=== PATIENT | male | born 1965 | race Caucasian/White ===

== ENCOUNTER 2017-06-22 16:10 | Emergency (ER) | payer OTHER ==
--- NOTE | 2017-06-22 16:28 | PDOC ---
History of Present Illness - General History Source: Patient Exam Limitations: No Limitations - History of Present Illness Initial Comments: 06/22/17 16:32 The patient is a 51 year old male with a significant past medical history of CVA (03/2017), ?Afib, psoriatic arthritis and psoriasis who presents to the ED with headache and multiple abrasions s/p mechanical fall today. Patient was walking towards his car to get his bike as he tripped and fell landing on his knees then face. Patient was found conscious by his on the ground. He is now complaining of a headache. The patient denies fever, chills, n/v/d, abd pain, urinary symptoms, recent injuries or any other symptoms. PCP - Dr. Juan David Thurston [facility] - Knee sx, tonsillectomy, hernia, heart monitor placement. <Sarah Beth Hughes - Last Filed: 06/22/17 17:21> - General History Source: Patient, Old Records Exam Limitations: No Limitations <Mia Forman - Last Filed: 06/22/17 18:55> - General Chief Complaint: Injury Stated Complaint: FELL, STRUCK HIS FACE & HANDS Time Seen by Provider: 06/22/17 16:25 Past History <Sarah Beth Hughes - Last Filed: 06/22/17 17:21> - Past Medical History Psychiatric Problems: Yes (ANXIETY) - Surgical History Abdominal Surgery: Yes (HERNIA REPAIR) - Psycho/Social/Smoking Cessation Hx Anxiety: Yes Suicidal Ideation: No Smoking History: Current some day smoker Have you smoked in the past 12 months: Yes Number of Cigarettes Smoked Daily: 1 'Breaking Loose' booklet given: 07/15/15 Hx Alcohol Use: No Drug/Substance Use Hx: No Substance Use Type: None <Mia Forman - Last Filed: 06/22/17 18:55> - Past Medical History Allergies/Adverse Reactions: Allergies Allergy/AdvReac Type Severity Reaction Status Date / Time No Known Allergies Allergy Verified 07/15/15 05:05 Home Medications: Ambulatory Orders Alprazolam 1 mg PO BID 06/22/17 Aspirin Coated [Ecotrin -] 81 mg PO DAILY 06/22/17 Atorvastatin Ca [Lipitor] 40 mg PO HS 06/22/17 Biotin 10,000 mcg PO DAILY 06/22/17 Calcium Carbonate [Calcium] 1,000 mg PO DAILY 06/22/17 Cholecalciferol (Vitamin D3) [Vitamin D3] 5,000 unit PO DAILY 06/22/17 Escitalopram Oxalate [Lexapro -] 20 mg PO DAILY 06/22/17 Folic Acid - 1 mg PO BID 06/22/17 Gabapentin [Neurontin] 300 mg PO BID 06/22/17 Hydrochlorothiazide 25 mg PO DAILY 06/22/17 Lisinopril [Prinivil] 20 mg PO DAILY 06/22/17 Omeprazole 40 mg PO DAILY 06/22/17 Oxycodone HCl/Acetaminophen [Percocet 10-325 mg Tablet] 1 each PO TID 06/22/17 Prednisone [Deltasone] 40 mg PO DAILY 06/22/17 Secukinumab [Cosentyx Syringe] 150 mg SQ MONTHLY 06/22/17 Review of Systems - Review of Systems Able to Perform ROS?: Yes Comments:: 06/22/17 16:32 CONSTITUTIONAL: Absent: fever, chills, diaphoresis, generalized weakness, malaise, loss of appetite HEENT: Absent: rhinorrhea, nasal congestion, throat pain, throat swelling, difficulty swallowing, mouth swelling, ear pain, eye pain, visual Changes CARDIOVASCULAR: Absent: chest pain, syncope, palpitations, irregular heart rate, lightheadedness , peripheral edema RESPIRATORY: Absent: cough, shortness of breath, dyspnea with exertion, orthopnea, wheezing, stridor, hemoptysis GASTROINTESTINAL: Absent: abdominal pain, abdominal distension, nausea, vomiting, diarrhea, constipation, melena, hematochezia GENITOURINARY: Absent: dysuria, frequency, urgency, hesitancy, hematuria, flank pain, genital pain MUSCULOSKELETAL: Absent: myalgia, arthralgia, joint swelling SKIN: Present: multiple abrasions Absent: rash, itching, pallor HEMATOLOGIC/IMMUNOLOGIC: Absent: easy bleeding, easy bruising, lymphadenopathy, frequent infections ENDOCRINE: Absent: unexplained weight gain, unexplained weight loss, heat intolerance, cold intolerance NEUROLOGIC: Present: headache Absent: focal weakness or paresthesias, dizziness, unsteady gait, seizure, mental status changes, bladder or bowel incontinence PSYCHIATRIC: Absent: anxiety, depression, suicidal or homicidal ideation, hallucinations. <Sarah Beth Hughes - Last Filed: 06/22/17 17:21> *Physical Exam - Physical Exam Comments: 06/22/17 16:34 GENERAL: Well developed, well nourished. Awake and alert. In no acute distress. HEENT: Normocephalic, atraumatic. PERRLA, EOMI. No conjunctival pallor. Sclera are non- icteric. Moist mucous membranes. Oropharynx is clear. No hemotempinad. NECK: Supple. Full ROM. No JVD. Carotid pulses 2+ and symmetric, without bruits. No thyromegaly. No lymphadenopathy. CARDIOVASCULAR: Regular rate and rhythm. No murmurs, rubs, or gallops. Distal pulses are 2+ and symmetric. PULMONARY: No evidence of respiratory distress. Lungs clear to auscultation bilaterally. No wheezing, rales or rhonchi. ABDOMINAL: Soft. Non-tender. Non-distended. No rebound or guarding. No organomegaly. Normoactive bowel sounds. MUSCULOSKELETAL No C spine tenderness, no paraspinal tenderness, no step off or crepitus or bony deformity. Normal range of motion at all joints. No bony deformities or tenderness. No CVA tenderness. EXTREMITIES: No cyanosis. No clubbing. No edema. No calf tenderness. SKIN: (+)Ecchymosis at the right 5th metacarpal region, satellite laceration to right side of the forehead, abrasions to episcopalian region and bilateral upper extremities. Warm and dry. Normal capillary refill. No rashes. No jaundice. NEUROLOGICAL: Alert, awake, appropriate. Cranial nerves 2-12 intact. No focal deficit. PSYCHIATRIC: Cooperative. Good eye contact. Appropriate mood and affect. <Sarah Beth Hughes - Last Filed: 06/22/17 17:21> Procedures - Laceration/Wound Repair Face Wound Length: to 2.5 cm Wound Explored: clean Wound's Depth, Shape: superficial Irrigated w/ Saline: No Betadine Prep: Yes Anesthesia: 1% Lidocaine Amount of Anesthetic (ccs): 3 Wound Debrided: minimal Wound Repaired With: Sutures Suture Size/Type: 5:0 Number of Sutures: 5 Layer Closure: No Sterile Dressing Applied: No Progress: 06/22/17 17:15 Bacitracin dressing applied. Patient tolerated procedure well. <Mia Forman - Last Filed: 06/22/17 18:55> Medical Decision Making - Medical Decision Making 06/22/17 16:26 42-year-old male with history of psoriatic arthritis, questionable atrial fibrillation, CVA in March 2017 presents the emergency Department with complaints of headache status post mechanical fall while walking today with positive LOC; he sustained a laceration to his forehead. Differential diagnosis includes but is not limited to: TBI, concussion, laceration to forehead, contusion, various abrasions. Plan: 1. CT head 2. Suture repair of wound 3. Pain management 4. Observe and reevaluate 06/22/17 18:04 Addendum: CT hea is negative. The patient c/o pain to his right wrist and hand. Plain films were obtained and are negative (per my read). Will discharge home. Suture removal and wound care discussed with the patient. Patient was advised to return to the ED if his Sx persist, worsen, or new Sx arise. 06/22/17 18:54 Addendum: The patient was discharged home and instructed to call back for official radiology read in the am. The radiologist called me to say the there is no fracture but the carpal bones appear malaligned and recommended CT scan of the wrist. I called Mr. Boggs at home and informed him of the read as well as the need to come back for further imaging. The patient states that he will return in the morning for re-evaluation. <Mia Forman - Last Filed: 06/22/17 18:55> *DC/Admit/Observation/Transfer - Attestations Scribe Attestion: 06/22/17 16:38 Documentation prepared by CRISTY Gutierrez, acting as medical imaging specialist for Mia Forman MD. <Sarah Beth Hughes - Last Filed: 06/22/17 17:21> - Discharge Dispostion Admit: No - Attestations Physician Attestion: 06/22/17 16:27 I, Dr. Mia Forman, attest that the scribes documentation that appears above has been prepared under my direction and personally reviewed by me in its entirety. I confirmed that the note above accurately reflects all work, treatment, procedures, and medical decision-making performed by me. <Mia Forman - Last Filed: 06/22/17 18:55> Diagnosis at time of Disposition: Forehead laceration, Abrasion, Concussion, Fall, Contusion of hand, right - Discharge Dispostion Disposition: HOME Condition at time of disposition: Stable - Referrals Referrals: Juan David Thurston MD [Primary Care Provider] - - Patient Instructions Printed Discharge Instructions: Tips to Help You Stop Smoking, DI for Suture Removal, DI for Closed Head Injury Additional Instructions: You may take tylenol or ibuprofen for pain. Sutures should be removed in 5-7 days. Return to the ED sooner if you see redness, swelling, purulent discharge or any other signs of infection.
[2017-06-22 16:56] VITALS: BP 155/102; PULSE 112; TEMP 98.2; BMI 25.0
== END 2017-06-22 18:09 | disposition home or self-care (01) ==
LOC: FER 16:10
PROC: 0HQ1XZZ Repair Face Skin, External Approach (ICD-10-PCS; principal; 2017-06-22)
DX: S01.81XA Laceration without foreign body of other part of head, initial encounter (principal); S60.051A Contusion of right little finger without damage to nail, initial encounter; S06.0X0A Concussion without loss of consciousness, initial encounter; F17.210 Nicotine dependence, cigarettes, uncomplicated; F41.9 Anxiety disorder, unspecified; W18.39XA Other fall on same level, initial encounter; Y93.01 Activity, walking, marching and hiking; Y92.9 Unspecified place or not applicable; Z86.73 Personal history of transient ischemic attack (TIA), and cerebral infarction without residual deficits; L40.9 Psoriasis, unspecified
CPT/HCPCS: 70450-TC; 73110-TC-RT; 73130-TC-RT; 99281-25

== ENCOUNTER 2017-06-23 10:49 | Emergency (ER) | payer OTHER ==
[2017-06-23 11:09] VITALS: BP 151/95; PULSE 94; TEMP 98.1; BMI 27.1
--- NOTE | 2017-06-23 11:30 | PDOC ---
History of Present Illness - General Chief Complaint: Injury Stated Complaint: rt wrist injury Time Seen by Provider: 06/23/17 10:55 History Source: Patient, Old Records Exam Limitations: No Limitations - History of Present Illness Initial Comments: 06/23/17 11:31 The patient is a 51 year old male with a significant past medical history of CVA (03/2017), ?Afib, psoriatic arthritis and psoriasis who presented to the ED yesterday with headache and multiple abrasions s/p mechanical fall yesterday. Patient was walking towards his car to get his bike as he tripped and fell landing on his knees then face. Patient was found conscious by his on the ground. He sustained a laceration to the forehead which was sutured. The patient had a work-up which included a CT head as well as right hand and wrist plain films. The CT head was negative; the plain films of the right hand/wrist showed ? malalignment of the carpal bones and CT scan was recommended. The patient returns to the ED today for that CT scan for further evaluation. He does c/o pain to the right wrist. Past History - Past Medical History Allergies/Adverse Reactions: Allergies Allergy/AdvReac Type Severity Reaction Status Date / Time No Known Allergies Allergy Verified 06/23/17 10:50 Home Medications: Ambulatory Orders Alprazolam 1 mg PO BID 06/22/17 Aspirin Coated [Ecotrin -] 81 mg PO DAILY 06/22/17 Atorvastatin Ca [Lipitor] 40 mg PO HS 06/22/17 Biotin 10,000 mcg PO DAILY 06/22/17 Calcium Carbonate [Calcium] 1,000 mg PO DAILY 06/22/17 Cholecalciferol (Vitamin D3) [Vitamin D3] 5,000 unit PO DAILY 06/22/17 Escitalopram Oxalate [Lexapro -] 20 mg PO DAILY 06/22/17 Folic Acid - 1 mg PO BID 06/22/17 Gabapentin [Neurontin] 300 mg PO BID 06/22/17 Hydrochlorothiazide 25 mg PO DAILY 06/22/17 Lisinopril [Prinivil] 20 mg PO DAILY 06/22/17 Omeprazole 40 mg PO DAILY 06/22/17 Oxycodone HCl/Acetaminophen [Percocet 10-325 mg Tablet] 1 each PO TID 06/22/17 Prednisone [Deltasone] 40 mg PO DAILY 06/22/17 Secukinumab [Cosentyx Syringe] 150 mg SQ MONTHLY 06/22/17 Psychiatric Problems: Yes (ANXIETY) - Surgical History Abdominal Surgery: Yes (HERNIA REPAIR) - Psycho/Social/Smoking Cessation Hx Anxiety: Yes Suicidal Ideation: No Smoking History: Current some day smoker Have you smoked in the past 12 months: Yes Number of Cigarettes Smoked Daily: 1 Information on smoking cessation initiated: Yes 'Breaking Loose' booklet given: 06/23/17 Hx Alcohol Use: No Drug/Substance Use Hx: No Substance Use Type: None Review of Systems - Review of Systems Able to Perform ROS?: Yes Is the patient limited Latvian proficient: No Constitutional: No: Symptoms Reported HEENTM: No: Symptoms Reported Respiratory: No: Symptoms reported Cardiac (ROS): No: Symptoms Reported ABD/GI: No: Symptoms Reported : No: Symptoms Reported Musculoskeletal: Yes: See HPI Integumentary: No: Symptoms Reported *Physical Exam - Vital Signs Last Vital Signs Temp Pulse Resp BP Pulse Ox 98.1 F 94 H 20 151/95 94 L 06/23/17 10:50 06/23/17 10:50 06/23/17 10:50 06/23/17 10:50 06/23/17 10:50 - Physical Exam Comments: 06/23/17 11:34 GENERAL: Well developed, well nourished. Awake and alert. No acute distress. HEENT: There is brusing and ecchymosis to the rightr side of the face with right hetal- orbital edema. The sutures are intact. PERRLA, EOMI. No conjunctival pallor. Sclera are non-icteric. Moist mucous membranes. Oropharynx is clear. NECK: Supple. Full ROM. No JVD. No lymphadenopathy. CARDIOVASCULAR: Regular rate and rhythm. No murmurs, rubs, or gallops. Distal pulses are 2+ and symmetric. PULMONARY: No evidence of respiratory distress. Lungs clear to auscultation bilaterally. No wheezing, rales or rhonchi. ABDOMINAL: Soft. Non-tender. Non-distended. No rebound or guarding. No organomegaly. Normoactive bowel sounds. EXTREMITIES: Right wrist: There is swelling of the right wrist with limited ROM. SKIN: Warm and dry. Normal capillary refill. No rashes. No jaundice. NEUROLOGICAL: Alert, awake, appropriate. Cranial nerves 2-12 intact. Grossly non-focal exam. PSYCHIATRIC: Cooperative. Good eye contact. Appropriate mood and affect. ED Treatment Course - RADIOLOGY Radiology Studies Ordered: Category Date Time Status UPPER EXTREMITY CT W/O CONTR [CT] Stat CT Scan 06/23/17 10:58 Ordered Medical Decision Making - Medical Decision Making 06/23/17 11:35 51-year-old male status post mechanical fall yesterday with abnormal plain films of the right hand here for reevaluation with CT scan. Differential diagnosis includes but is not limited to: Dislocation/subluxation of the carpal bones, fracture, contusion, sprain. Plan: 1. CT scan 2. Pain management 3. Observe and reevaluate 06/23/17 12:20 Addendum: CT scan has been obtained and shows a non-displaced fx of the radial head (probably acute) and a ?lunate "tilt". The right has been placed in a volar splint. I have discussed the results of the CT scan findings and have advised him to follow up with an orthopedist within the next few days-- preferably tomorrow. The patient has an orthopedist that he can go to see/ prefers. A copy of the CT read as well as the images has been provided to the patient. *DC/Admit/Observation/Transfer Diagnosis at time of Disposition: Fracture of right wrist - Discharge Dispostion Disposition: HOME Condition at time of disposition: Stable Admit: No - Patient Instructions Additional Instructions: You have been placed in a wrist splint for a non-displaced radial head fracture. Keep the extremity elevated at all times when/if possible. Please follow-up with an orthopedist tomorrow and return to the ED if your symptoms persist, worsen or new symptoms arise.
== END 2017-06-23 12:45 | disposition home or self-care (01) ==
LOC: FER 10:49
PROC: 2W3CX1Z Immobilization of Right Lower Arm using Splint (ICD-10-PCS; principal; 2017-06-23)
DX: S52.591A Other fractures of lower end of right radius, initial encounter for closed fracture (principal); W18.39XA Other fall on same level, initial encounter; Y93.89 Activity, other specified; Y92.9 Unspecified place or not applicable; F41.9 Anxiety disorder, unspecified; F17.210 Nicotine dependence, cigarettes, uncomplicated
CPT/HCPCS: 73200-TC-RT; 99283-25

== ENCOUNTER 2019-01-07 05:18 | Emergency (ER) | payer OTHER ==
[2019-01-07 05:36] VITALS: TEMP 97.5; BMI 28.8
[2019-01-07] MEDS ORDERED: LORazepam 0.5 MG TABLET PO ONE (06:14)
[2019-01-07] MEDS ORDERED: LORATADINE 10 MG TABLET PO ONE (06:14)
[2019-01-07] MEDS ORDERED: LORATADINE 10 MG TABLET ONE (06:16)
[2019-01-07] MEDS ORDERED: LORazepam 0.5 MG TABLET ONE (06:16)
--- NOTE | 2019-01-07 06:20 | PDOC ---
History of Present Illness - General Chief Complaint: Psychiatric Stated Complaint: PANIC ATTACK Time Seen by Provider: 01/07/19 06:03 History Source: Patient, Family - History of Present Illness Initial Comments: 01/07/19 06:15 53yoM hx of depression/anxiety, daily marijuana use, HTN presents w/c/o "panic attacks" x 3am. States that 10d ago he ran out of Lexapro and decided not to refill -- would like to get off of the medication. Was doing fine for first few days and then over past week has been having more frequent panic attacks (this is the reason he was on the lexapro), eventually having multiple daily and since 3am he feels extremely anxious and is unable to rest/sleep. Cites current URI w/ severe nasal congestion as source of his anxiety - he is having difficulty breathing through his nose. Used Afrin spray last night without much relief. Past History - Past Medical History Allergies/Adverse Reactions: Allergies Allergy/AdvReac Type Severity Reaction Status Date / Time No Known Allergies Allergy Verified 06/23/17 10:50 Home Medications: Ambulatory Orders Aspirin Coated [Ecotrin -] 81 mg PO DAILY 06/22/17 Calcium Carbonate [Calcium] 1,000 mg PO DAILY 06/22/17 Cholecalciferol (Vitamin D3) [Vitamin D3] 5,000 unit PO DAILY 06/22/17 Escitalopram Oxalate [Lexapro -] 20 mg PO DAILY 06/22/17 Gabapentin [Neurontin] 300 mg PO BID 06/22/17 Hydrochlorothiazide 25 mg PO DAILY 06/22/17 Secukinumab [Cosentyx Syringe] 150 mg SQ MONTHLY 06/22/17 COPD: No HTN: Yes Psychiatric Problems: Yes (ANXIETY) Other medical history: Chronic pain, prior narcoic/benzo chronic use - Surgical History Abdominal Surgery: Yes (HERNIA REPAIR) - Suicide/Smoking/Psychosocial Hx Smoking History: Never smoked Have you smoked in the past 12 months: No Number of Cigarettes Smoked Daily: 1 Information on smoking cessation initiated: No 'Breaking Loose' booklet given: 06/23/17 Hx Alcohol Use: No Drug/Substance Use Hx: Yes (MARIJUANA DAILY) Substance Use Type: None Review of Systems - Review of Systems Comments:: 01/07/19 06:18 as per HPI All Other Systems: Reviewed and Negative *Physical Exam - Vital Signs Last Vital Signs Temp Pulse Resp BP Pulse Ox 97.5 F L 79 18 163/100 100 01/07/19 05:30 01/07/19 05:30 01/07/19 05:30 01/07/19 05:30 01/07/19 05:30 - Physical Exam Comments: 01/07/19 06:18 NAD, anxious appearing EOMI, LUIS + congestion, no sinus tenderness post OP wnl, no cervical LAD RRR CTABL soft NTND no edema A&O x3, thought process clear and linear. Moderate Sedation - Procedure Monitoring Vital Signs: Procedure Monitoring Vital Signs Temperature 97.5 F L 01/07/19 05:30 Pulse Rate 79 01/07/19 05:30 Respiratory Rate 18 01/07/19 05:30 Blood Pressure 163/100 01/07/19 05:30 O2 Sat by Pulse Oximetry (%) 100 01/07/19 05:30 Medical Decision Making - Medical Decision Making 01/07/19 06:19 53yoM w/ progressively increasing anxiety in setting of self-dc Lexapro. No SI. + sinus congestion. - ativan PO - claritin, nasal saline spray/wash, discussed avoiding pseudoephedrine with pt re: can worsten anxiety symptoms. - DC *DC/Admit/Observation/Transfer Diagnosis at time of Disposition: Anxiety - Discharge Dispostion Disposition: HOME Condition at time of disposition: Stable - Referrals - Patient Instructions Printed Discharge Instructions: Escitalopram Additional Instructions: Continue your Escitalopram. Stopping needs to be monitored by psychiatry. For sinus congestion: avoid sudafed as this can cause jittery or anxiety-like symptoms. Claritin for decongestion Nasal saline spay or wash (example: Netti Pot) can be used to loosen mucus and help decongest your sinuses. Hot steam shower can also help loosen mucus VICKs vapor rub. - Post Discharge Activity Forms/Work/School Notes: Back to Work
[2019-01-07 06:31] VITALS: BP 155/83; PULSE 71
== END 2019-01-07 06:39 | disposition home or self-care (01) ==
LOC: FER 05:18
DX: F41.9 Anxiety disorder, unspecified (principal); I10 Essential (primary) hypertension; G89.29 Other chronic pain
CPT/HCPCS: 99281-25